=== PATIENT | male | born 1965 | race Caucasian/White ===

== ENCOUNTER 2020-06-30 07:26 | Outpatient (REF) | payer OTHER, SELFPAY ==
[2020-06-30 11:18] LABS: MANUAL DIFF FLAG NO
[2020-06-30 11:38] LABS: Basophils Absolute Auto 0.1 X10*3/uL (0.0-0.2); Basophils Percent Auto 1.7 % (0-2); Eosinophils Absolute Auto 0.4 X10*3/uL (0.0-0.4); Eosinophils Percent Auto 7.1 % (0-4); Hematocrit 45.5 % (42-52); Hemoglobin 14.5 g/dl (14.0-18.0); Imm Gran Abs Auto 0.01 X10*3/uL (0.00-0.03); Imm Gran Pct Auto 0.2 % (0.0-0.4); Lymphocytes Absolute Auto 2.1 X10*3/uL (1.2-4.9); Lymphocytes Percent Auto 35.7 % (20-40); Mean Corpuscular HGB Conc 31.9 g/dl (31.0-36.0); Mean Corpuscular Hemoglobin 30.2 pg (27.0-33.0); Mean Corpuscular Volume 94.8 fL (80-98); Mean Platelet Volume 10.7 fL (9.4-12.4); Monocytes Absolute Auto 0.6 X10*3/uL (0.1-1.2); Monocytes Percent Auto 10.6 % (2-11); Neutrophils Absolute Auto 2.7 X10*3/uL (2.0-8.3); Neutrophils Percent Auto 44.7 % (45-73); Platelet Count 251 X10*3/uL (160-400); Red Cell Distribution Width 13.2 % (11.0-16.0); White Blood Count 5.9 X10*3/uL (4.8-10.8)
[2020-06-30 12:09] LABS: Alanine Aminotransferase 36 U/L (0-40); Albumin Level 4.3 g/dL (3.5-5.0); Alkaline Phosphatase 43 U/L (39-117); Anion Gap 14 (12-20); Aspartate Amino Transferase 24 U/L (5-37); Bilirubin Direct 0.2 mg/dL (0.0-0.5); Bilirubin Total 0.5 mg/dL (0.0-1.0); Blood Urea Nitrogen 12 mg/dL (9-16); Carbon Dioxide 24 mmol/L (22-29); Chloride 105 mmol/L (96-108); Estimated Glomerular Filt Rate > 60; Glucose Random 130 mg/dL (60-115); Sodium 139 mmol/L (135-145)
[2020-06-30 12:31] LABS: Prostate Specific Antigen 1.45 ng/mL (<0.05-4.0)
== END 2020-06-30 07:27 | disposition home or self-care (01) ==
LOC: HO.HMGCLDS 07:26
PROVIDERS: PCP Internal Medicine; Visit Provider Internal Medicine
DX: Z00.00 Encounter for general adult medical examination without abnormal findings (principal); Z12.5 Encounter for screening for malignant neoplasm of prostate
CPT/HCPCS: 36415; 80053; 80076; 82248; 84153; 85025

== ENCOUNTER 2020-07-14 10:14 | Outpatient (REF) | payer OTHER, SELFPAY ==
[2020-07-14 11:54] LABS: Glucose Fasting 111 mg/dL (60-99)
[2020-07-14 12:13] LABS: Estimated Average Glucose 120 mg/dL; Hemoglobin A1c % 5.8 %
== END 2020-07-14 10:15 | disposition home or self-care (01) ==
LOC: HO.HMGCLDS 10:14
PROVIDERS: PCP Internal Medicine; Visit Provider Internal Medicine
DX: R73.9 Hyperglycemia, unspecified (principal)
CPT/HCPCS: 36415; 82947; 83036

== ENCOUNTER 2021-08-31 07:45 | Outpatient (REF) | payer OTHER, SELFPAY ==
[2021-08-31 11:22] LABS: MANUAL DIFF FLAG NO
[2021-08-31 11:26] LABS: Basophils Absolute Auto 0.1 X10*3/uL (0.0-0.2); Basophils Percent Auto 1.9 % (0-2); Eosinophils Absolute Auto 0.5 X10*3/uL (0.0-0.4); Eosinophils Percent Auto 7.1 % (0-4); Hematocrit 44.3 % (42.0-52.0); Hemoglobin 14.2 g/dl (14.0-18.0); Imm Gran Abs Auto 0.02 X10*3/uL (0.00-0.03); Imm Gran Pct Auto 0.3 % (0.0-0.4); Lymphocytes Absolute Auto 2.3 X10*3/uL (1.2-4.9); Lymphocytes Percent Auto 35.8 % (20-40); Mean Corpuscular HGB Conc 32.1 g/dl (31.0-36.0); Mean Corpuscular Hemoglobin 29.8 pg (27.0-33.0); Mean Corpuscular Volume 92.9 fL (80.0-98.0); Mean Platelet Volume 10.7 fL (9.4-12.4); Monocytes Absolute Auto 0.7 X10*3/uL (0.1-1.2); Monocytes Percent Auto 11.5 % (2-11); Neutrophils Absolute Auto 2.8 x10*3/uL (2.0-8.3); Neutrophils Percent Auto 43.4 % (45-73); Platelet Count 240 X10*3/uL (160-400); Red Blood Count 4.77 X10*6/uL (4.60-5.80); Red Cell Distribution Width 13.6 % (11.0-16.0); White Blood Count 6.5 X10*3/uL (4.8-10.8)
[2021-08-31 11:38] LABS: Estimated Average Glucose 117 mg/dL; Hemoglobin A1C 150.0483 umol/L; Hemoglobin A1c % 5.7 %
[2021-08-31 11:39] LABS: Appearance Urine CLEAR; Color Urine STRAW; Glucose Urine UA NEG (NEG); Leukocyte Esterase Urine NEG (NEG); Nitrite Urine NEG (NEG); Specific Gravity - Urine <= 1.005 (1.005-1.025); Urine Blood NEG (NEG); Urine Ketones NEG (NEG); Urine Protein NEG (NEG-TRACE)
[2021-08-31 12:08] LABS: Alanine Aminotransferase 33 U/L (0-40); Albumin Level 4.5 g/dL (3.5-5.0); Alkaline Phosphatase 42 U/L (39-117); Anion Gap 12 (12-20); Aspartate Amino Transferase 22 U/L (5-37); Bilirubin Total 0.5 mg/dL (0.0-1.0); Blood Urea Nitrogen 13 mg/dL (9-16); Calcium 9.3 mg/dL (8.4-10.2); Carbon Dioxide 26 mmol/L (22-29); Chloride 106 mmol/L (96-108); Cholesterol 259 mg/dL; Estimated Glomerular Filt Rate > 60; Glucose Fasting 121 mg/dL (60-99); HDL Cholesterol 52 mg/dL; LDL Cholesterol Calculated 173 mg/dl; Potassium 4.8 mmol/L (3.3-5.1); Sodium 139 mmol/L (135-145); Total Protein 7.4 g/dL (6.5-8.0); Triglycerides 172 mg/dL
[2021-08-31 12:18] LABS: Prostate Specific Antigen Scr 1.53 ng/mL (<0.05-4.0)
== END 2021-08-31 07:46 | disposition home or self-care (01) ==
LOC: HO.HMGCLDS 07:45
PROVIDERS: PCP Internal Medicine; Visit Provider Internal Medicine
DX: Z00.00 Encounter for general adult medical examination without abnormal findings (principal); Z12.5 Encounter for screening for malignant neoplasm of prostate; R73.03 Prediabetes
CPT/HCPCS: 36415; 80053; 80061; 81003; 83036; 84153; 85025

== ENCOUNTER 2022-01-16 15:20 | Outpatient (REF) | payer OTHER, SELFPAY ==
[2022-01-16 16:22] LABS: Influenza A PCR NEGATIVE (Negative); Influenza B PCR NEGATIVE (Negative); Resp Syncy Virus RNA Qual PCR NEGATIVE (Negative); SARS COV2 PCR INHOUSE NEGATIVE (Negative)
== END 2022-01-16 15:21 | disposition home or self-care (01) ==
LOC: HO.LNP 15:20
PROVIDERS: Visit Provider Internal Medicine
DX: R05.9 Cough, unspecified (principal); R09.89 Other specified symptoms and signs involving the circulatory and respiratory systems; Z20.822 Contact with and (suspected) exposure to COVID-19
CPT/HCPCS: 0241U

== ENCOUNTER 2022-04-24 12:12 | Day surgery (SDC) | payer OTHER, SELFPAY ==
--- NOTE | 2022-04-24 12:48 | HO.ANESPROP2 ---
Documented by User: Jesús Cedillo MD 04/24/22 12:49 HPI - Anesthesia Eval Consult details Narrative: colonoscopy [facility] Past Medical History Medical History (Updated 04/21/22 @ 12:35 by Venita Isaac, DAO) Sleep apnea Family History Family history of problems with anesthesia: No Surgical History Surgical History (Updated 04/21/22 @ 12:35 by Venita Isaac, DAO) H/O colonoscopy H/O left knee surgery History of Problems with Anesthesia: No Social History Social History Patient Tobacco Use Status: Never used Tobacco Use of substances other than those prescribed or required for medical reasons: No Are you DNR?: No Advance Directives: No Advance Directives Information Provided: Yes Recently lost weight without trying: No Nutrition Risks: No Nutritional Risk Meds Allergies Allergy/AdvReac Type Severity Reaction Status Date / Time sulfamethoxazole Allergy Intermediate HIVES Verified 04/24/22 13:26 [From BACTRIM] trimethoprim [From BACTRIM] Allergy Intermediate HIVES Verified 04/24/22 13:26 Sulfa (Sulfonamide Allergy Unknown hives Verified 02/15/18 00:00 Antibiotics) Home Medications Medication Instructions Recorded Confirmed Last Taken Type ibuprofen 600 mg tablet 1 tab PO BID PRN Pain 04/21/22 04/21/22 Unknown History Exam Exam Date and Time: April 24, 2022 124 Airway Mallampati Class: II TM Dist: >3cm Neck ROM: Limited Heart: rrr Lungs: cta Assessment and Plan Final Anesthetic Review Family History of Problems with Anesthesia: No History of Problems with Anesthesia: No NPO: Yes ASA Class: II Final Preanesthetic Review: No Changes in Pt Med Stat, Consent Obtained/Reviewed and Anes Risks/Benef Reviewed Patient Risk: Low Procedure Risk: Low Anesthetic Plan Anesthetic Plan: MAC: Disposition: Standard PACU Documented by User: Priti Le MD 04/24/22 13:40 HPI - Anesthesia Eval Consult details Narrative: colonoscopy screening [facility] Past Medical History Medical History (Updated 04/21/22 @ 12:35 by Venita Isaac RN) Sleep apnea Surgical History Surgical History (Updated 04/21/22 @ 12:35 by Venita Isaac RN) H/O colonoscopy H/O left knee surgery Social History Social History Patient Tobacco Use Status: Never used Tobacco Use of substances other than those prescribed or required for medical reasons: No Are you DNR?: No Advance Directives: No Advance Directives Information Provided: Yes Recently lost weight without trying: No Nutrition Risks: No Nutritional Risk Meds Allergies Allergy/AdvReac Type Severity Reaction Status Date / Time sulfamethoxazole Allergy Intermediate HIVES Verified 04/24/22 13:26 [From BACTRIM] trimethoprim [From BACTRIM] Allergy Intermediate HIVES Verified 04/24/22 13:26 Sulfa (Sulfonamide Allergy Unknown hives Verified 02/15/18 00:00 Antibiotics) Home Medications Medication Instructions Recorded Confirmed Last Taken Type ibuprofen 600 mg tablet 1 tab PO BID PRN Pain 04/21/22 04/21/22 Unknown History
[2022-04-24 13:23] VITALS: BMI 32.3
[2022-04-24 13:32] VITALS: BP 158/97; PULSE 76; RESP 16; TEMP 37; O2SAT 97
[2022-04-24] MEDS: Lactated Ringers 500 ML 20 ML IVCONT (13:43)
--- NOTE | 2022-04-24 14:48 | P.BOP_ITS ---
Brief Operative Note Date of Service: 04/24/22 Pre-op diagnosis: Screening Post-op diagnosis: other (Colon polyp) Procedure: Colonoscopy to the cecum and TI with bx/removal of polyp Surgeon: Damon Mccormick Anesthesia: MAC Was an Out Of Town Collection Clerk used for this Procedure?: No Estimated blood loss (mL): 2.0 Pathology: other (A. Appendiceal orifice polyp) Condition: stable Disposition: PACU
[2022-04-24 14:51] VITALS: BP 126/82; PULSE 79; RESP 20; TEMP 36.9; O2SAT 95
[2022-04-24 15:06] VITALS: BP 151/95; PULSE 69; RESP 18; TEMP 36.9; O2SAT 96
--- NOTE | 2022-04-24 22:52 | OP_ITS ---
SURGEON: Damon Mccomrick MD INDICATIONS: The patient presents for followup of personal history of tubular adenoma of the colon and colorectal cancer screening. Full consent has been obtained from him for this, including risks of bleeding and perforation. PREOPERATIVE DIAGNOSIS: POSTOPERATIVE DIAGNOSIS: PROCEDURE PERFORMED: Colonoscopy to the cecum and terminal ileum with biopsy and removal of polyp. ESTIMATED BLOOD LOSS: COMPLICATIONS: ANESTHESIA: Medication used, monitored anesthesia care. ASSISTANTS: SPECIMENS: PREOPERATIVE DIAGNOSES: Colorectal cancer screening and personal history of tubular adenoma of the colon. POSTOPERATIVE DIAGNOSES: Colorectal cancer screening and personal history of tubular adenoma of the colon, small colon polyp, diverticulosis, and internal hemorrhoids. DESCRIPTION OF PROCEDURE: The patient was placed in the left lateral decubitus position. The digital rectal exam revealed no abnormalities. The Olympus video pediatric colonoscope was entered into the rectum and advanced easily to the cecum. Once in the cecum, I did identify normal-appearing cecal pouch with appendiceal orifice other than a 3 mm polyp on the outer portion of the appendiceal orifice. This was biopsied and completely removed with a cold biopsy forceps. The remainder of the cecum appeared normal. The ileocecal valve appeared normal. The terminal ileum was cannulated and appeared normal. The scope was withdrawn back in the colon. The scope was slowly withdrawn assessing all mucosal surfaces carefully. Preparation was excellent. I did not visualize any other polyps, colitis, nor angiodysplasia. There was a mild amount of sigmoid diverticulosis. In the rectum, the scope was retroflexed visualizing internal hemorrhoids, but no other pathology. The rectal mucosa appeared normal. The scope was straightened out and withdrawn from the patient. He tolerated the procedure well and was returned to the recovery area in stable condition. IMPRESSION: 1. Small colon polyp. 2. Diverticulosis. 3. Internal hemorrhoids. PLAN: The results of the biopsy will be checked. I would recommend repeat colonoscopy in 5 years for further screening. He will otherwise see me on a p.r.n. basis. MD BRANDON Salguero/GERARDO / [id number]
== END 2022-04-24 15:40 | disposition home or self-care (01) ==
PROVIDERS: PCP Internal Medicine; Visit Provider Internal Medicine
PROC: 0DJD8ZZ Inspection of Lower Intestinal Tract, Via Natural or Artificial Opening Endoscopic (ICD-10-PCS; CPT 45378; principal; 2022-04-24 13:40)
DX: Z12.11 Encounter for screening for malignant neoplasm of colon (principal); Z86.010 Personal history of colon polyps; K63.5 Polyp of colon; K57.30 Diverticulosis of large intestine without perforation or abscess without bleeding; K64.8 Other hemorrhoids; G47.30 Sleep apnea, unspecified; Z79.1 Long term (current) use of non-steroidal anti-inflammatories (NSAID); Z99.89 Dependence on other enabling machines and devices; Z88.2 Allergy status to sulfonamides
CPT/HCPCS: 45380; 88305

== ENCOUNTER 2023-03-21 08:16 | Outpatient (REF) | payer OTHER, SELFPAY ==
[2023-03-21 11:24] LABS: MANUAL DIFF FLAG NO
[2023-03-21 11:43] LABS: Basophils Absolute Auto 0.1 X10*3/uL (0.0-0.2); Basophils Percent Auto 1.3 % (0-2); Eosinophils Absolute Auto 0.7 X10*3/uL (0.0-0.4); Eosinophils Percent Auto 8.9 % (0-4); Hematocrit 45.1 % (42.0-52.0); Hemoglobin 14.5 g/dl (14.0-18.0); Imm Gran Abs Auto 0.03 X10*3/uL (0.00-0.03); Imm Gran Pct Auto 0.4 % (0.0-0.4); Lymphocytes Absolute Auto 2.2 X10*3/uL (1.2-4.9); Lymphocytes Percent Auto 27.9 % (20-40); Mean Corpuscular HGB Conc 32.2 g/dl (31.0-36.0); Mean Corpuscular Hemoglobin 30.1 pg (27.0-33.0); Mean Corpuscular Volume 93.8 fL (80.0-98.0); Mean Platelet Volume 10.5 fL (9.4-12.4); Monocytes Absolute Auto 0.6 X10*3/uL (0.1-1.2); Monocytes Percent Auto 7.9 % (2-11); Neutrophils Absolute Auto 4.2 x10*3/uL (2.0-8.3); Neutrophils Percent Auto 53.6 % (45-73); Platelet Count 258 X10*3/uL (160-400); Red Blood Count 4.81 X10*6/uL (4.60-5.80); Red Cell Distribution Width 13.5 % (11.0-16.0); White Blood Count 7.9 X10*3/uL (4.8-10.8)
[2023-03-21 11:58] LABS: Estimated Average Glucose 111 mg/dL; Hemoglobin A1c % 5.5 % (<6.0)
[2023-03-21 12:15] LABS: Prostate Specific Antigen 2.08 ng/mL (<0.05-4.0)
[2023-03-21 12:20] LABS: Alanine Aminotransferase 26 U/L (0-40); Albumin Level 4.2 g/dL (3.5-5.0); Alkaline Phosphatase 49 U/L (39-117); Anion Gap 14 (12-20); Aspartate Amino Transferase 19 U/L (5-37); Bilirubin Total 0.4 mg/dL (0.0-1.0); Blood Urea Nitrogen 11 mg/dL (9-16); Calcium 9.1 mg/dL (8.4-10.2); Carbon Dioxide 23 mmol/L (22-29); Chloride 110 mmol/L (96-108); Cholesterol 226 mg/dL (<200); Estimated Glomerular Filt Rate > 60; Glucose Fasting 113 mg/dL (60-99); HDL Cholesterol 56 mg/dL (>40); LDL Cholesterol Calculated 146 mg/dL (<100); Potassium 4.6 mmol/L (3.3-5.1); Sodium 142 mmol/L (135-145); Total Protein 7.5 g/dL (6.5-8.0); Triglycerides 121 mg/dL (<150)
== END 2023-03-21 08:17 | disposition home or self-care (01) ==
LOC: HO.HMGCLDS 08:16
PROVIDERS: PCP Internal Medicine; Visit Provider Internal Medicine
DX: Z12.5 Encounter for screening for malignant neoplasm of prostate (principal); E78.00 Pure hypercholesterolemia, unspecified; R73.03 Prediabetes; R35.1 Nocturia
CPT/HCPCS: 36415; 80053; 80061; 83036; 84153; 85025

== ENCOUNTER 2023-10-23 11:19 | Outpatient (REF) | payer OTHER, SELFPAY ==
--- NOTE | ~2023-10-23 | XR_ITS ---
EXAMINATION: XR LUMBOSACRAL SPINE CLINICAL INFORMATION: Low back pain COMPARISON: None available. TECHNIQUE: Three views of the lumbosacral spine. FINDINGS: Spondylitic change in the low thoracic spine. Facet degenerative change L4-S1. No fracture or destructive process or alignment abnormality. There is sclerotic change overlying the left SI joint indicative of an arthritic process. XR/XR lumbar spine 2-3V IMPRESSION: Multilevel degenerative changes observed. No acute findings or fracture. Electronically signed by: Jhon Laws MD 10/23/2023 01:21 PM EDT
[2023-10-23 12:23] LABS: Estimated Average Glucose 114 mg/dL; Hemoglobin A1C 152.6807 umol/L; Hemoglobin A1c % 5.6 % (<6.0)
[2023-10-23 12:46] LABS: Anion Gap 11 (12-20); Blood Urea Nitrogen 10 mg/dL (9-16); Calcium 9.2 mg/dL (8.4-10.2); Carbon Dioxide 25 mmol/L (22-29); Chloride 109 mmol/L (96-108); Estimated Glomerular Filt Rate > 60; Glucose Random 104 mg/dL (60-115); Potassium 4.2 mmol/L (3.3-5.1); Sodium 141 mmol/L (135-145)
== END 2023-10-23 11:20 | disposition home or self-care (01) ==
LOC: HO.LAB 11:19
PROVIDERS: PCP Internal Medicine; Visit Provider Internal Medicine
DX: M54.50 Low back pain, unspecified (principal); R73.03 Prediabetes
CPT/HCPCS: 36415; 72100; 80048; 83036

== ENCOUNTER 2024-03-25 07:51 | Outpatient (REF) | payer OTHER, SELFPAY | END 2024-03-25 07:52 | disposition home or self-care (01) | LOC: HO.SH 07:51 | PROVIDERS: Visit Provider Internal Medicine | DX: Z01.118 Encounter for examination of ears and hearing with other abnormal findings (principal); H90.3 Sensorineural hearing loss, bilateral | CPT/HCPCS: 92557 ==

== ENCOUNTER 2024-03-25 08:32 | Outpatient (REF) | payer OTHER, SELFPAY ==
[2024-03-25 08:46] LABS: MANUAL DIFF FLAG NO
[2024-03-25 09:11] LABS: Basophils Absolute Auto 0.1 X10*3/uL (0.0-0.2); Basophils Percent Auto 1.7 % (0-2); Eosinophils Absolute Auto 0.3 X10*3/uL (0.0-0.4); Hematocrit 44.7 % (42.0-52.0); Hemoglobin 14.8 g/dl (14.0-18.0); Imm Gran Abs Auto 0.02 X10*3/uL (0.00-0.03); Imm Gran Pct Auto 0.3 % (0.0-0.4); Lymphocytes Absolute Auto 1.5 X10*3/uL (1.2-4.9); Lymphocytes Percent Auto 23.6 % (20-40); Mean Corpuscular HGB Conc 33.1 g/dl (31.0-36.0); Mean Corpuscular Hemoglobin 30.5 pg (27.0-33.0); Mean Platelet Volume 10.1 fL (9.4-12.4); Monocytes Absolute Auto 0.8 X10*3/uL (0.1-1.2); Monocytes Percent Auto 12.5 % (2-11); Neutrophils Absolute Auto 3.7 x10*3/uL (2.0-8.3); Neutrophils Percent Auto 57.9 % (45-73); Platelet Count 243 X10*3/uL (160-400); Red Blood Count 4.86 X10*6/uL (4.60-5.80); Red Cell Distribution Width 13.2 % (11.0-16.0); White Blood Count 6.3 X10*3/uL (4.8-10.8)
[2024-03-25 09:21] LABS: Appearance Urine Clear; Color Urine Yellow; Glucose Urine UA Negative (Negative); Leukocyte Esterase Urine Negative (Negative); Nitrite Urine Negative (Negative); PH 5.5 (5.0-9.0); Urine Blood Negative (Negative); Urine Ketones Negative (Negative); Urine Protein Negative (Neg-Trace)
[2024-03-25 09:30] LABS: Estimated Average Glucose 120 mg/dL; Hemoglobin A1C 156.7082 umol/L; Hemoglobin A1c % 5.8 % (<6.0); Total Hemoglobin (HGBA1C) 3954.8357 umol/L
[2024-03-25 09:53] LABS: Alanine Aminotransferase 36 U/L (0-40); Albumin Level 4.5 g/dL (3.5-5.0); Alkaline Phosphatase 38 U/L (39-117); Anion Gap 17 (12-20); Aspartate Amino Transferase 26 U/L (5-37); Bilirubin Total 0.6 mg/dL (0.0-1.0); Blood Urea Nitrogen 13 mg/dL (9-16); Calcium 9.2 mg/dL (8.4-10.2); Carbon Dioxide 24 mmol/L (22-29); Chloride 107 mmol/L (96-108); Cholesterol 207 mg/dL (<200); Estimated Glomerular Filt Rate > 60; Glucose Fasting 122 mg/dL (60-99); HDL Cholesterol 54 mg/dL (>40); LDL Cholesterol Calculated 134 mg/dL (<100); Potassium 3.9 mmol/L (3.3-5.1); Sodium 144 mmol/L (135-145); Total Protein 7.9 g/dL (6.5-8.0); Triglycerides 99 mg/dL (<150)
[2024-03-25 10:07] LABS: Prostate Specific Antigen 1.78 ng/mL (<0.05-4.0)
[2024-03-25 10:37] LABS: Microalbum/Creatinine Ratio Ur 5.5 ug/mg cr (<30)
== END 2024-03-25 08:33 | disposition home or self-care (01) ==
LOC: HO.LAB 08:32
PROVIDERS: PCP Internal Medicine; Visit Provider Internal Medicine
DX: E78.00 Pure hypercholesterolemia, unspecified (principal); R73.03 Prediabetes; Z12.5 Encounter for screening for malignant neoplasm of prostate; K21.9 Gastro-esophageal reflux disease without esophagitis
CPT/HCPCS: 36415; 80053; 80061; 81003; 82043; 82570; 83036; 84153; 85025

== ENCOUNTER 2024-08-27 10:22 | Outpatient (AMB) | payer OTHER, SELFPAY ==
--- NOTE | 2024-08-27 10:24 | MHC.PC.OV ---
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 Accompanied by: Self / Same As Patient Allergies sulfamethoxazole (From BACTRIM) Allergy (Intermediate, Verified 08/27/24 10:24) HIVES trimethoprim (From BACTRIM) Allergy (Intermediate, Verified 08/27/24 10:24) HIVES Sulfa (Sulfonamide Antibiotics) Allergy (Unknown, Verified 08/27/24 10:24) hives Medication List - Last Reconciled 08/27/24 by ELIEZER Mcknight ibuprofen 600 mg PO Q8H PRN HPI HPI Comments History of Present Illness Details 59-year-old male with history of obstructive sleep apnea, prediabetes, GERD, asthma, hyperlipidemia presents to the office today for management of chronic conditions, to establish care. Hyperlipidemia-last LDL 134, not on statin CYALA-not using CPAP due to mask irritation GERD-over the last month has been uncontrolled. Using Tums frequently. He has been trying to avoid triggers Mild intermittent asthma-stable, has not needed any inhalers Concerns: R elbow pain ongoing x 6 months. Tender, occ radiation into the fingers. Initially swollen with a bruise which did resolve, however swelling persists. Does not recall any specific injury. Avoids putting pressure on it due to discomfort. Full ROM. Reports he does occasionally have pain radiating into the 3rd-5th finger Health maintenance: Last screening colonoscopy 2022 with 5 year follow-up recommended due to tubular adenoma. Dr. Mccormick ROS: General: No fevers, malaise, unintentional weight loss HEENT: No blurred vision, diplopia. No sore throat, nasal congestion, rhinorrhea, sinus pain, ear pain Cardiovascular: No chest pain, palpitations, or leg edema Respiratory: No shortness of breath, wheezing, cough GI: See HPI. No melena or hematochezia or epigastric pain MSK: See HPI Neuro: No headaches, weakness, paresthesias Skin: No rashes or lesions EXAM: Constitutional - Awake and Alert, No apparent distress Eyes - PERRL Cardiovascular - S1S2, RRR, No edema Respiratory - Normal lung expansion, Normal respiratory effort, No respiratory distress, CTA bilaterally Extremities - no calf tenderness bilaterally MSK - moderate sized mobile swelling of the right olecranon without any overlying erythema or warmth with full range of motion Skin - Warm/Dry Neurological - Alert & oriented x3 Psychological - Appropriate affect PFSH Medical History (Updated 08/27/24 @ 10:38 by ELIEZER Mcknight) Olecranon bursitis Hyperlipidemia Asthma History of colon polyps CAYLA (obstructive sleep apnea) Prediabetes GERD (gastroesophageal reflux disease) Surgical History (Updated 08/26/24 @ 15:42 by Odalys Quintanilla) H/O left knee surgery H/O colonoscopy (~04/24/22) Family History (Updated 08/27/24 @ 10:31 by ELIEZER Mcknight) Sister Myocardial infarct Social History Patient Tobacco Use Status: Never used Tobacco Questionnaire PHQ-9 Over the last 2 weeks, how often have you been bothered by any of the following problems? 1. Little interest or pleasure in doing things: several days 2. Feeling down, depressed, or hopeless: several days 3. Trouble falling or staying asleep, or sleeping too much: more than half the days 4. Feeling tired or having little energy: more than half the days 5. Poor appetite or overeating: not at all 6. Feeling bad about yourself - or that you are a failure or have let yourself or your family down: several days 7. Trouble concentrating on things, such as reading the newspaper or watching television: several days 8. Moving or speaking so slowly that other people could have noticed. Or the opposite - being so fidgety or restless that you have been moving around a lot more than usual: not at all 9. Thoughts that you would be better off or of hurting yourself in some way: not at all Total score: 8 Depression Screening Interpretation: Negative Depression Screening Done: Yes 88854 - PHQ-9 Billing: Yes Source: Developed by Drs. Damon Szymanski, Maye Villavicencio, Kieran Patiño and colleagues, with an educational quique from [employer]. Thrive Questionnaire What is your living situation today?: I have a steady place to live Within the past 12 months, did the food you bought not last and you didn't have the money to get more?: Never true Within the past 12 months, did you worry whether your food would run out before you got money to buy more?: Never true Do you have trouble paying for medicines?: No Do you have trouble getting transportation to medical appointments?: No Do you have trouble paying your heating and electricity bill?: No Do you have trouble taking care of your child, family member or friend?: No Do you have trouble with day-to-day activities such as bathing, preparing meals, shopping, managing finances, etc.?: No Are you currently unemployed and looking for a job?: No Are you interested in more education?: No THRIVE Score: 0 PAWAN-7 AMB Questionnaire PAWAN-7 Feeling nervous, anxious, or on edge: 1 = Several days Not being able to stop or control worryin = Several days Worrying too much about different things: 0 = Not at all Trouble relaxin = Several days Being so restless that it is hard to sit still: 1 = Several days Becoming easily annoyed or irritable: 1 = Several days Feeling afraid as if something awful might happen: 0 = Not at all Total PAWAN-7 score (0-4 normal; 5-9 mild; 10-14 moderate; 15-21 severe): 5 Source: Developed by Drs. Damon Szymanski, Maye Villavicencio, Kieran Patiño and colleagues, with an educational quique from [employer]. PAWAN-7 Assessment Billing PAWAN-7 Assessment Tool: PAWAN-7 Assessment 16140 Physical exam (Primary Care) Vital Signs: Last Vital Signs Temp 97.8 F 08/27/24 10:27 Pulse 69 08/27/24 10:27 Resp 16 08/27/24 10:27 BP 138/82 08/27/24 10:45 Pulse Ox 97 08/27/24 10:27 Oxygen Delivery Method Room Air 08/27/24 10:27 BMI result Body Mass Index 30.6 Tobacco/Smoking Status: Tobacco use Status Patient Tobacco Use Status Never used Tobacco 08/27/24 10:30 PHQ-9: PHQ-9 Score PHQ-9: Total score 8 08/27/24 10:55 Depression Screening Interpretation: Negative Coding Level of Care Code New Pt Level 4 (43408) Complex EM visit Add On G2211 Diagnoses Olecranon bursitis M70.20 CAYLA (obstructive sleep apnea) G47.33 Prediabetes R73.03 Hyperlipidemia E78.5 GERD (gastroesophageal reflux disease) K21.9 Additional Codes PAWAN-7 Assessment Billing - PAWAN-7 Assessment Tool: PAWAN-7 Assessment 05029 ([id number]) PHQ-9 - 50639 - PHQ-9 Billing: Yes ([id number]) Assessment & Plan Assessment & Plan (1) Olecranon bursitis: Code(s): M70.20 - Olecranon bursitis, unspecified elbow Category: Medical Plan: Can use ibuprofen as needed for discomfort and also recommend ice. He is given information on bursitis as well as exercises to help. Given duration of symptoms, he is also referred to orthopedics for further evaluation. No evidence of infection at this time (2) CAYLA (obstructive sleep apnea): Code(s): G47.33 - Obstructive sleep apnea (adult) (pediatric) Category: Medical Plan: Noncompliant with CPAP for years. Will refer for repeat sleep study (3) Prediabetes: Code(s): R73.03 - Prediabetes Category: Medical Plan: Last A1c 5.8%. Consult on lifestyle modifications and given written instructions (4) Hyperlipidemia: Code(s): E78.5 - Hyperlipidemia, unspecified Category: Medical Plan: LDL 134. Recommend lifestyle modifications (5) GERD (gastroesophageal reflux disease): Code(s): K21.9 - Gastro-esophageal reflux disease without esophagitis Category: Medical Plan: Uncontrolled at this time. Recommend Prilosec every morning x3 weeks and then discontinue uncontrolled. Avoid triggering foods, given information on this. Tums as needed Plan Follow-up in the office in 6 months Orders: Orders RT home sleep study Today G47.33 - Obstructive sleep apnea (adult) (pediatric) Hemoglobin A1c 6 Months E78.5 - Hyperlipidemia, unspecified, R73.03 - Prediabetes Basic Metabolic Panel 6 Months E78.5 - Hyperlipidemia, unspecified, R73.03 - Prediabetes Lipid Panel 6 Months E78.5 - Hyperlipidemia, unspecified, R73.03 - Prediabetes Referrals Orthopedics Referral M70.20 - Olecranon bursitis, unspecified elbow Medications: New ibuprofen 600 mg PO Q8H PRN 30 tabs 0RF pain omeprazole 20 mg PO DAILY 30 caps 0RF
[2024-08-27 10:27] VITALS: BP 144/92; PULSE 69; RESP 16; TEMP 36.6; O2SAT 97; BMI 30.6
[2024-08-27 10:45] VITALS: BP 138/82
== END 2024-08-27 10:48 | disposition home or self-care (01) ==
LOC: HO.HMCHD 10:23
PROVIDERS: PCP Physician Assistant; Visit Provider Physician Assistant
DX: M70.20 Olecranon bursitis, unspecified elbow (principal); G47.33 Obstructive sleep apnea (adult) (pediatric); R73.03 Prediabetes; E78.5 Hyperlipidemia, unspecified; K21.9 Gastro-esophageal reflux disease without esophagitis

== ENCOUNTER → 2024-08-27 10:22 | Outpatient (BNVA) | payer OTHER, SELFPAY | PROVIDERS: PCP Physician Assistant; Visit Provider Physician Assistant | DX: M70.21 Olecranon bursitis, right elbow (principal); E78.5 Hyperlipidemia, unspecified; G47.33 Obstructive sleep apnea (adult) (pediatric); K21.9 Gastro-esophageal reflux disease without esophagitis; J45.20 Mild intermittent asthma, uncomplicated; Z13.31 Encounter for screening for depression | CPT/HCPCS: 96127 ==

== ENCOUNTER 2024-11-12 10:24 | Outpatient (AMB) | payer OTHER, SELFPAY ==
--- NOTE | 2024-11-12 10:38 | A.OFFVIS_ITS ---
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 Patient reports for roughly 8 months he has been having shooting pain that radiates into the right hand 3rd, 4th and 5th digits. He is experiencing swelling that has not resolved. He says today it is the lowest its been in swelling over the last 8 months. Pain with palpation and with any pressure applied onto right elbow. He expresses when he is driving and if he puts his elbow down on the arm rest he jerks his arm back from pain. occasionally there is tingling sensations in the right hand 3rd, 4th and 5th digits as well. Some days he has cramping in the entire right hand and all the digits making it painful to open and close a fist. He says he has no issues lifting however he has dropped things from the right hand. Denies every having his elbow aspirated. He has tried resting, ibuprofen and icing to find any relief he can. 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 Patient reports for roughly 8 months he has been having shooting pain that radiates into the right hand 3rd, 4th and 5th digits. He is experiencing swelling that has not resolved. He says today it is the lowest its been in swelling over the last 8 months. Pain with palpation and with any pressure applied onto right elbow. He expresses when he is driving and if he puts his elbow down on the arm rest he jerks his arm back from pain. occasionally there is tingling sensations in the right hand 3rd, 4th and 5th digits as well. Some days he has cramping in the entire right hand and all the digits making it painful to open and close a fist. He says he has no issues lifting however he has dropped things from the right hand. Denies every having his elbow aspirated. He has tried resting, ibuprofen and icing to find any relief he can. [facility], [facility] Medical History (Updated 11/18/24 @ 22:43 by ELIEZER Gay) Olecranon bursitis Hyperlipidemia Asthma History of colon polyps CAYLA (obstructive sleep apnea) Prediabetes GERD (gastroesophageal reflux disease) Surgical History (Updated 08/26/24 @ 15:42 by Odalys Quintanilla) H/O left knee surgery H/O colonoscopy (~04/24/22) Family History (Updated 08/27/24 @ 10:31 by ELIEZER Mcknight) Sister Myocardial infarct Social History (Updated 11/12/24 @ 10:41 by ED Arnold) Alcohol intake: current Alcohol intake frequency: holidays/special occasions only Patient Tobacco Use Status: Never used Tobacco Current occupational status: employed Current occupation: [employer] - right handed Review of Systems Const All systems reviewed & are unremarkable except as noted in HPI and below Physical Exam Vital Signs: BMI result Body Mass Index 30.1 Extrem Other: Patient's right elbow swollen to inspection over the olecranon process No erythema, ecchymosis, edema noted No lacerations, abrasions, open areas No evidence of infection Patient reports minimal tenderness to palpation of the right elbow over the olecranon process Range of motion of the right elbow full and intact Distal sensation ion intact Capillary refill brisk Assessment & Plan Assessment & Plan (1) Olecranon bursitis: Code(s): M70.20 - Olecranon bursitis, unspecified elbow Category: Medical (2) Numbness and tingling of right hand: Code(s): R20.0 - Anesthesia of skin; R20.2 - Paresthesia of skin Category: Medical Plan 1. Olecranon bursitis of right elbow Patient is educated about this condition Patient is educated about the typical treatment course Patient is provided with 2 Edilberto bandages to encourage gentle compression of the right olecranon bursa and reuptake of extra fluid in the bursa Patient understands this and is amenable to this plan 2. Numbness and tingling of right hand Symptoms intermittent, daily, worse at night EMG and nerve conduction study ordered to assess the health of the nerves of the right upper extremity Patient will follow-up after EMG and nerve conduction study for results review and discussion of further treatment options if indicated Patient understands this in his amenable to this plan Orders: Orders NE electromyogram (EMG) 11/12/24 R20.0 - Anesthesia of skin, R20.2 - Paresthesia of skin NE nerve conduction velocity 11/12/24 R20.0 - Anesthesia of skin, R20.2 - Paresthesia of skin Coding Level of Care Code New Pt Level 3 (32879) Diagnoses Olecranon bursitis M70.20 Numbness and tingling of right hand R20.0; R20.2
[2024-11-12 10:39] VITALS: BMI 30.1
--- OUTSIDE RECORDS SUMMARY | 2024-11-12 12:55 | XMS_ITS | Patient Health Record ---
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 Name Role Phone Hiral (RETIRED) Barrie ROSE Primary Care Provide r Damon Kitchen Unavailable [phone] Allergies Allergen (clinical drug ingredient) Drug/Non Drug Allergy documented on EMR Reaction Allergy Type Onset Date Status sulfamethoxazole / trimethoprim Bactrim Unknown Drug Allergy Active Reason For Referral No Information Medications Medication SIG (Take, Route, Fr equency, Duration) Notes Start Date End Date Status Ibuprofen 200 MG 1 tablet as needed Orally prn Active Immunizations Vaccine Route Administration Date Status Comme nts Influenza Unknown 02/28/2022 Administered Problems Problem Type SNOMED Code ICD Code Onset Dates Problem Status W/U Status Risk Notes Problem 949819112 Colon cancer screening (Z12.11) Active confirmed Problem 194395781 Encounter for screening for malignant neoplasm of colon (Z12.11) Active confirmed Problem 491057496 History of adenomatous polyp of colon (Z86.010) Active confirmed Problem Diverticular disease of colon (003424710) Diverticulosis of large intestine without perforation or abscess without bleeding (K57.30) Active confirmed Problem Screening for malignant neoplasm of rectum (294556730) Encounter for screening for malignant neoplasm of rectum (Z12.12) Active confirmed Problem 29466548 Preprocedural examination (Z01.818) Active confirmed Plan Of Treatment Pending Test Test Name Order Date Pathology 04/24/2022 Future Test Test Name Order Date COLONOSCOPY 12/22/2015 COLONOSCOPY 03/16/2022 Insurance Providers Payer Name Payer Address Payer Phone Subscriber Number Group Number Insured Name Patient Relationship to Insured Coverage Start Date Coverage End Date R [address] [address] [place] [address] [id number] [id number] Self - patient is the insured Medical (General) History Medical History History ICD Code Denies SD,DM,CVA,Lung disease,renal dise ase Sleep apnea---has a CPAP, but having tro uble using it Screening colonoscopy 02/2016 with remova l of a tubular adenoma Surgical History Surgery Date(Month/Year) Knee surgery-left 2007
== END 2024-11-12 11:01 | disposition home or self-care (01) ==
LOC: HO.HOS 10:25
PROVIDERS: PCP Physician Assistant
DX: M70.21 Olecranon bursitis, right elbow (principal); R20.0 Anesthesia of skin; R20.2 Paresthesia of skin
CPT/HCPCS: 99203

== ENCOUNTER → 2024-12-04 07:49 | Outpatient (REF) | payer OTHER, SELFPAY ==
--- OUTSIDE RECORDS SUMMARY | 2024-12-04 07:52 | XMS_ITS | Patient Health Record ---
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 Name Role Phone Hiral (RETIRED) Barrie ROSE Primary Care Provide r Damon Kitchen Unavailable [phone] Allergies Allergen (clinical drug ingredient) Drug/Non Drug [...] Problem Status W/U Status Risk Notes Problem Colon cancer screening (154604148) Colon cancer screening (Z12.11) Active confirmed Problem Screening for malignant neoplasm of colon (273234698) Encounter for screening for malignant neoplasm of colon (Z12.11) Active confirmed Problem History of adenomatous polyp of colon (177924507) History of adenomatous polyp of colon (Z86.010) Active confirmed Problem Diverticular disease of colon (603685576) Diverticulosis of large intestine without perforation or abscess without bleeding (K57.30) Active confirmed Problem Screening for malignant neoplasm of rectum (701553513) Encounter for screening for malignant neoplasm of rectum (Z12.12) Active confirmed Problem Preprocedural examination (144322942299520) Preprocedural examination (Z01.818) Active confirmed Plan Of Treatment Pending Test Test Name Order Date Pathology 04/24/2022 Future Test Test Name Order Date COLONOSCOPY 12/22/2015 COLONOSCOPY 03/16/2022 Insurance Providers Payer Name Payer Address Payer Phone Subscriber Number Group Number Insured Name Patient Relationship to Insured Coverage Start Date Coverage End Date [facility] [address] [address] [place] [address] [id number] PAU [id number] Self - patient is the insured Medical (General) History Medical History History ICD Code Denies RI,DM,CVA,Lung disease,renal dise ase Sleep apnea---has a CPAP, but having tro uble using it Screening colonoscopy 02/2016 with remova l of a tubular adenoma Surgical History Surgery Date(Month/Year) Knee surgery-left 2007
== END ==
LOC: HO.SL 07:49
PROVIDERS: PCP Physician Assistant; Visit Provider Physician Assistant
DX: G47.33 Obstructive sleep apnea (adult) (pediatric) (principal)
CPT/HCPCS: 95806

== ENCOUNTER → 2024-12-04 08:01 | Outpatient (BNV) | payer OTHER, SELFPAY | PROVIDERS: PCP Physician Assistant; Visit Provider Internal Medicine | DX: G47.33 Obstructive sleep apnea (adult) (pediatric) (principal) | CPT/HCPCS: 95806 ==

== ENCOUNTER 2025-01-28 10:03 | Outpatient (REF) | payer OTHER, SELFPAY ==
--- NOTE | 2025-01-28 10:06 | EMG_ITS ---
Chief complaint: Left olecranon bursitis, no signs of infection, but been having tingling on left 3rd-5th digits Reason for referral: Evaluate for ulnar neuropathy Referred by: Scooby MARTINS Procedure done: Left upper extremity NCS/EMG Precautions and/or limitations: None The limb temperature was monitored continuously and remained between 32-36 degrees C during the performance of the NCS. Ulnar motor NCS was performed with moderate elbow flexion between 70-90 degrees, with across-elbow distance of 10 cm. Nerve Conduction Studies Anti Sensory Summary Table ?Stim Site NR Onset (ms) Norm Onset (ms) Peak (ms) Norm Peak (ms) O-P Amp (?V) Norm O-P Amp Site1 Site2 Delta-0 (ms) Dist (cm) Shiva (m/s) Norm Shiva (m/s) Right Median Anti Sensory (2nd Digit) Wrist ? 2.8 3.9 <3.6 12.5 >10 Wrist 2nd Digit 2.8 14.0 50 Right Radial Anti Sensory (Thumb) Forearm ? 1.7 2.3 <3.1 15.3 Forearm Thumb 1.7 0.0 Right Ulnar Anti Sensory (5th Digit) Wrist ? 0.6 3.3 <3.7 16.3 >15.0 Wrist 5th Digit 0.6 14.0 233 Motor Summary Table ?Stim Site NR Onset (ms) Norm Onset (ms) O-P Amp (mV) Norm O-P Amp iAmp (mV) Amp (1st) (%) Site1 Site2 Delta-0 (ms) Dist (cm) Shiva (m/s) Norm Shiva (m/s) Right Median Motor (Abd Poll Brev) Wrist ? 3.9 <3.9 10.5 >4.5 12.5 100.0 Elbow Wrist 4.1 21.5 52 >45 Elbow ? 8.0 9.1 10.9 86.7 Right Ulnar Motor (Abd Dig Minimi) Wrist ? 2.8 <3.0 9.3 >5 11.9 100.0 B Elbow Wrist 3.9 21.0 54 >45 B Elbow ? 6.7 9.4 12.0 101.1 A Elbow B Elbow 1.2 10.0 83 >45 A Elbow ? 7.9 9.2 12.2 98.9 EMG ?Side Muscle Nerve Root Ins Act Fibs Psw Amp Dur Poly Recrt Int Pat Comment Right 1stDorInt Ulnar C8-T1 Nml Nml Nml Nml Nml 0 Nml Complete Right FlexCarpiUln Ulnar C8,T1 Nml Nml Nml Nml Nml 0 Nml Complete Right Biceps Musculocut C5-6 Nml Nml Nml Nml Nml 0 Nml Complete Right Triceps Radial C6-7-8 Nml Nml Nml Nml Nml 0 Nml Complete Right Deltoid Axillary C5-6 Nml Nml Nml Nml Nml 0 Nml Complete FINDINGS: Left median sensory nerve showed prolonged peak latency. All other nerves tested were within normal. Concentric needle EMG was performed in selected muscles of the left upper extremity. Study revealed did not reveal signs of electric abnormalities as shown in the table above. IMPRESSION: 1. This is an abnormal study. 2. There is electrodiagnostic evidence for left mild median neuropathy at the wrist, consistent with carpal tunnel syndrome. 3. There is no electrodiagnostic evidence for ulnar neuropathy, brachial plexopathy, or cervical radiculopathy. CLINICAL COMMENT: Incidental finding of left mild Carpal Tunnel Syndrome, do not think related to the olecranon bursitis. No signs of ulnar neuropathy. Thank you for your kind referral. Darling Tilley MD, MARYA Board Certified, [place] [employer] (ABPMR) Board Certified, [place] [employer] (ABEM) CODIN [phone] [id number] x 1 extremity MTDD
== END 2025-01-28 10:04 ==
LOC: HO.NEURO 10:03
PROVIDERS: PCP Physician Assistant
DX: R20.0 Anesthesia of skin (principal); R20.2 Paresthesia of skin
CPT/HCPCS: 95886; 95909

== ENCOUNTER → 2025-01-28 10:06 | Outpatient (BNV) | payer OTHER, SELFPAY | PROVIDERS: PCP Physician Assistant; Visit Provider Physical Medicine & Rehabilitation | DX: R20.0 Anesthesia of skin (principal) | CPT/HCPCS: 95886; 95909 ==